=== PATIENT | female | born 1970 | race Caucasian/White ===

== ENCOUNTER → 2016-05-23 | Outpatient (CLI) | payer BC ==
--- NOTE | 2016-05-23 20:42 | MR ---
EXAMINATION TYPE: MR lumbar spine wo con DATE OF EXAM: 05/23/2016 5:11 PM COMPARISON: 05/15/2013 HISTORY: 45 year-old female post laminectomy syndrome, low back pain, leg weakness TECHNIQUE: Multiplanar, multisequence images of the lumbar spine were acquired. FINDINGS: Redemonstrated are postsurgical changes of L4-S1 posterior fusion with corresponding laminectomies. Old mild superior endplate compression deformity of L3 is unchanged. Vertebral body heights otherwise preserved and alignment is maintained. No suspicious bone marrow replacement. Conus medullaris is normal. No prevertebral or paravertebral soft tissue abnormality. At T12-L1, no spinal canal or neuroforaminal stenosis. At L1-L2, no spinal canal or neuroforaminal stenosis. At L2-L3, minimal diffuse disc bulge slightly increased from prior exam. However, this does not resul t in any significant spinal canal or neuroforaminal stenosis. At L3-L4, there is interval progression in degenerative disc desiccation, ligamentum flavum thickenin g, and facet arthropathy. Minimal bulging disc is also increased. However, changes does not result in any significant spinal canal stenosis. There is mild bilateral neural foraminal stenosis particularl y on the right that does not appear significantly changed. At L4-L5, no spinal canal stenosis. Relatively similar mild right neuroforaminal stenosis. At L5-S1, no spinal canal stenosis. Relatively similar moderate bilateral neuroforaminal stenoses. IMPRESSION: 1. Status post L4-S1 posterior fusion. 2. Degenerative disc disease has slightly progressed above the fusion at L3-L4. There is facet arthro nathanael at this level as well but relatively similar mild right greater than left neuroforaminal stenos is. 3. Mild right neuroforaminal stenosis at L4-L5 and moderate bilateral neuroforaminal stenoses at L5-S 1 are also relatively similar. 4. Remote mild superior endplate compression deformity of L3 is also unchanged. 5. No canal compromise.
== END | disposition home or self-care (01) ==
LOC: RADMRIMAIN 16:31
PROVIDERS: ATTEND Family Medicine
DX: M99.73 Connective tissue and disc stenosis of intervertebral foramina of lumbar region (principal); M51.36 Other intervertebral disc degeneration, lumbar region; M46.96 Unspecified inflammatory spondylopathy, lumbar region; Z98.1 Arthrodesis status
CPT/HCPCS: 72148

== ENCOUNTER → 2016-09-24 | Outpatient (CLI) | payer BC ==
--- NOTE | 2016-09-24 15:02 | BD ---
EXAMINATION TYPE: MG DEXA axial skeleton. DATE OF EXAM: 09/24/2016 COMPARISON: 2014 CLINICAL HISTORY: osteoporosis Height: 5'2 Weight: 120 FRAX RISK QUESTIONS: Alcohol (3 or more units per day): no Family History (Parent hip fracture): no Glucocorticoids (More than 3mos): no (Ex: prednisone, prednisolone, methylprednisolone, dexamethasone, and hydrocortisone). History of Fracture in Adulthood: yes Secondary Osteoporosis: 1. Type 1 Diabetes: no 2. Hyperthyroidism: no 3. Menopause before 45: yes 4. Malnutrition: no 5. Chronic liver disease: no Rheumatoid Arthritis: no Current Tobacco Use: yes RISK FACTORS HISTORY OF: Surgery to Spine/ When: 2009 Family History of Osteoporosis: Postmenopausal woman: MEDICATIONS: Osteoporosis Medications: Which medication: Boniva How Lon Additional Medications: calcium, pre vitamin , nerve damage , anxiety, pain meds, Additional History: osteoporosis EXAM MEASUREMENTS: Bone mineral density about the R hip (g/cm2): 0.716 Bone mineral density about the L hip (g/cm2): 0.720 T Score values are as follows: -----R Neck: -2.3 -----L Neck: -2.3 -----R Total: -2.4 -----L Total: -2.2 Bone mineral density has: Decreased -1.8% since study of: 09/02/2014 IMPRESSION: Osteopenia (T Score between -2.5 and -1 as noted by T score values: Domenico Hips There is slightly increased risk of fracture and the patient may be considered for treatment. Re-Screen 2-5 years. NOTE: T-SCORE=SD OF THE YOUNG ADULT MEAN.
== END | disposition home or self-care (01) ==
LOC: RADBDWWP 12:29
PROVIDERS: ATTEND Family Medicine
DX: M85.88 Other specified disorders of bone density and structure, other site (principal)
CPT/HCPCS: 77080

== ENCOUNTER → 2018-03-05 | Outpatient (CLI) | payer BC ==
--- NOTE | 2018-03-06 12:28 | XR ---
EXAMINATION TYPE: XR chest 2V DATE OF EXAM: 03/05/2018 COMPARISON: 08/29/2015 INDICATION: Pleurisy TECHNIQUE: Frontal and lateral views of the chest are obtained. FINDINGS: The heart size is normal. The pulmonary vasculature is normal. The lungs are clear. Mild scoliosis is present. No pneumothorax is evident. IMPRESSION: 1. No acute pulmonary process.
--- NOTE | 2018-03-06 12:29 | XR ---
EXAMINATION TYPE: XR ribs LT DATE OF EXAM: 03/05/2018 COMPARISON: Chest x-ray same date HISTORY: Pleurisy TECHNIQUE: Two-view left RIBS FINDINGS: There is some thickening of the posterior lateral rib may be an old fracture. No acute disp laced fractures are evident. IMPRESSION: 1. No acute rib fractures
== END | disposition home or self-care (01) ==
LOC: RADXRMAIN 17:24
PROVIDERS: ATTEND Family Medicine
DX: R09.1 Pleurisy (principal); M94.0 Chondrocostal junction syndrome [Tietze]
CPT/HCPCS: 71046

== ENCOUNTER → 2018-03-13 | Outpatient (CLI) | payer BC ==
--- NOTE | 2018-03-14 10:45 | ECHOS ---
STRESS ECHOCARDIOGRAM INDICATIONS: Chest pain. BASELINE HEART RATE: 69 BASELINE BLOOD PRESSURE: 92/76 MAXIMUM HEART RATE: 150 MAXIMUM BLOOD PRESSURE: 165/54 85% MPHR: 147 100% MPHR: 173 METS: 11.9 MAXIMUM STAGE REACHED: III TOTAL EXERCISE TIME: 11:00 CLINICAL INFORMATION: Baseline heart rate 69 beats per minute baseline blood pressure 92/76 mmHg. Baseline 12-lead ECG shows normal sinus rhythm with normal cardiac intervals. Patient exercised on a Blake protocol for 11 minutes achieving a peak heart rate of 150 beats per minute. Normal blood pressure response. Patient complained of chest pain through the procedure. There was no ECG evidence for ischemia. No arrhythmias were noted. Baseline 2D echo showed normal LV size systolic function without segmental wall motion abnormalities. At peak exercise, there was excellent augmentation of overall LV contractility without development of any wall motion abnormalities. At recovery, regional global LV systolic function remained normal. IMPRESSION: No ECG or echocardiographic evidence for ischemia. MMODL / IJN: [id number] /
== END | disposition home or self-care (01) ==
LOC: RADNMMAIN 09:50
PROVIDERS: ATTEND Family Medicine
DX: R07.89 Other chest pain (principal)
CPT/HCPCS: 93351

== ENCOUNTER → 2018-06-05 | Outpatient (CLI) | payer BC ==
--- NOTE | 2018-06-05 16:47 | XR ---
EXAMINATION TYPE: XR chest 2V DATE OF EXAM: 06/05/2018 COMPARISON: 03/05/2018 HISTORY: 47 year-old female chest pain and cough TECHNIQUE: Frontal and lateral views FINDINGS: The cardiomediastinal silhouette, aorta, and pulmonary vasculature are within normal limits. Mild pat skyla density at the left base peripherally. Otherwise, lungs and pleural spaces are clear. Mild hyperi nflation. Retrospective review of the patient's 03/05/2018 rib series shows findings suspicious for minimally di splaced fractures of the left anterolateral third, fourth, and fifth ribs. IMPRESSION: 1. Mild patchy peripheral left basilar atelectasis or developing infiltrate. 2. Mild hyperinflation may relate to depth of inspiration or underlying emphysema. 3. Note that retrospective review of the patient's 03/05/2018 rib series demonstrated minimally displa esperanza fractures of the left anterolateral third, fourth, and fifth ribs.
--- NOTE | 2018-06-06 10:00 | ECHOF ---
Referral Reason:R07.9 CHEST PAIN MEASUREMENTS -------- HEIGHT: 162.6 cm WEIGHT: 62.6 kg BP: 112/71 RVIDd: 2.6 cm (< 3.3) IVSd: 1.0 cm (0.6 - 1.1) LVIDd: 3.8 cm (3.9 - 5.3) LVPWd: 1.0 cm (0.6 - 1.1) IVSs: 1.5 cm LVIDs: 2.5 cm LVPWs: 1.5 cm LA Diam: 2.8 cm (2.7 - 3.8) LAESV Index (A-L): 22.63 ml/m Ao Diam: 2.8 cm (2.0 - 3.7) AV Cusp: 2.0 cm (1.5 - 2.6) EPSS: 0.5 cm MV E Alex: 0.96 m/s MV DecT: 234 ms MV A Alex: 0.72 m/s MV E/A Ratio: 1.32 RAP: 5.00 mmHg RVSP: 22.98 mmHg MV EF SLOPE: 171.17 mm/s (70 - 150) MV EXCURSION: 1.83 cm (> 18.000) FINDINGS -------- Sinus rhythm. This was a technically good study. The left ventricular size is normal. Left ventricular wall thickness is normal. Overall left vent ricular systolic function is normal with, an EF between 60 - 65 %. The right ventricle is normal in size. Normal LA size by volume 22+/-6 ml/m2. The right atrium is normal in size. The aortic valve is trileaflet and appears structurally normal. The mitral valve leaflets are mildly thickened. Mild tricuspid regurgitation present. Right ventricular systolic pressure is normal at < 35 mmHg. Trace/mild (physiologic) pulmonic regurgitation. The aortic root size is normal. Normal inferior vena cava with normal inspiratory collapse consistent with estimated right atrial pre ssure of 5 mmHg. There is no pericardial effusion. CONCLUSIONS -------- 1. Sinus rhythm. 2. This was a technically good study. 3. The left ventricular size is normal. 4. Left ventricular wall thickness is normal. 5. Overall left ventricular systolic function is normal with, an EF between 60 - 65 %. 6. The right ventricle is normal in size. 7. Normal LA size by volume 22+/-6 ml/m2. 8. The right atrium is normal in size. 9. The aortic valve is trileaflet and appears structurally normal. 10. The mitral valve leaflets are mildly thickened. 11. Mild tricuspid regurgitation present. 12. Right ventricular systolic pressure is normal at < 35 mmHg. 13. Trace/mild (physiologic) pulmonic regurgitation. 14. The aortic root size is normal. 15. Normal inferior vena cava with normal inspiratory collapse consistent with estimated right atrial pressure of 5 mmHg. 16. There is no pericardial effusion. GUNNER'S MATE: LAURITA Prater
== END | disposition home or self-care (01) ==
LOC: RADECHMAIN 13:02
PROVIDERS: ATTEND Family Medicine
DX: I07.1 Rheumatic tricuspid insufficiency (principal); I37.1 Nonrheumatic pulmonary valve insufficiency; R91.8 Other nonspecific abnormal finding of lung field
CPT/HCPCS: 71046; 93306

== ENCOUNTER 2018-07-29 07:49 | Day surgery (SDC) | payer BC ==
[2018-07-23 11:17] VITALS: BMI 23.6
[~2018-07-29 07:49] MED LIST: ALPRAZolam 0.25 MG TAB PO PRN; SODIUM CHLORIDE 0.9% 1,000 ML in EMPTY BAG 1 BAG IV ONE
[2018-07-29 08:19] VITALS: TEMP 97.5
[2018-07-29 09:09] LABS: Basophils # (A) 0.1 k/uL (0-0.2); Basophils % (A) 1 %; Eosinophils # (A) 0.2 k/uL (0-0.7); Eosinophils % (A) 3 %; HCT 45.1 % (34.0-46.0); HGB 14.5 gm/dL (11.4-16.0); Lymphocytes # (A) 1.6 k/uL (1.0-4.8); Lymphocytes % (A) 21 %; MCH 30.5 pg (25.0-35.0); MCHC 32.1 g/dL (31.0-37.0); Mean Platelet Volume 7.4; Monocytes # (A) 0.5 k/uL (0-1.0); Monocytes % (A) 6 %; Neutrophils # (A) 5.2 k/uL (1.3-7.7); Neutrophils % (A) 68 %; Platelet Count 261 k/uL (150-450); RBC 4.75 m/uL (3.80-5.40); RDW 13.7 % (11.5-15.5); WBC 7.7 k/uL (3.8-10.6)
[2018-07-29 09:19] LABS: African American GFR (CKD) >90 (>60 ml/min/1.73 sqM); Anion Gap 8 mmol/L; Blood Urea Nitrogen 21 mg/dL (7-17); Calcium 9.7 mg/dL (8.4-10.2); Carbon Dioxide 28 mmol/L (22-30); Chloride 107 mmol/L (98-107); Glucose 96 mg/dL (74-99); Potassium 4.4 mmol/L (3.5-5.1); Sodium 143 mmol/L (137-145)
[2018-07-29] MEDS ORDERED: fentaNYL (PF) 50 MCG/ML 2 ML AMP ONE (09:37)
[2018-07-29] MEDS ORDERED: VERAPAMIL 2.5 MG/ML 2 ML AMP ONE (09:37)
[2018-07-29] MEDS ORDERED: LIDOCAINE 1% INJ 10MG/ML (20 ML MDV) ONE (09:37)
[2018-07-29] MEDS ORDERED: fentaNYL (PF) 50 MCG/ML 2 ML AMP IV ONE (09:43)
[2018-07-29] MEDS ORDERED: LIDOCAINE 1% INJ 10MG/ML (20 ML MDV) SQ ONE (09:46)
[2018-07-29] MEDS: MIDAZOLAM (PF) 2 MG/2 ML VIAL IV ONE ×2 (09:48→09:52)
[2018-07-29] MEDS ORDERED: VERAPAMIL SYRINGE (5 MG/10 ML) INTRAARTER ONE (09:49)
[2018-07-29] MEDS ORDERED: HEPARIN SODIUM 1,000 UN/ML (10ML VL) ONE (09:49)
[2018-07-29] MEDS ORDERED: HEPARIN SODIUM 1,000 UN/ML (10ML VL) IV ONE (09:54)
[2018-07-29] MEDS ORDERED: IOPAMIDOL-370 125ML BTL INJ ONE (09:58)
[2018-07-29] MEDS ORDERED: RX INFO: IV CONTRAST WAS GIVEN 1 EACH MISC MISCELLANE PRN (10:11)
[2018-07-29] MEDS ORDERED: SODIUM CHLORIDE 0.9% 1,000 ML IV SCH (10:15)
[2018-07-29 12:17] VITALS: BP 97/67; PULSE 56; RESP 16
--- NOTE | 2018-07-29 12:40 | CC ---
CARDIAC CATHETERIZATION REPORT Mrs. Koehler is a 47-year-old female with known history of hyperlipidemia and chronic tobacco use who has been complaining of recurrent episode of chest discomfort with radiation and improving with nitroglycerin sublingually. Her stress echocardiogram revealed no evidence of inducible ischemia. Because of the persistent symptoms and the pattern, recommendation made regarding cardiac catheterization. The procedure as well as the risks and the complications were discussed with the patient who is in full understanding and agreement. PROCEDURE: Patient was brought to the slabbing machine operator in a fasting semi-sedated state after receiving fentanyl and Benadryl and achieving moderate conscious sedated state. Using Xylocaine anesthesia in the Seldinger technique a 6-Chadian sheath was introduced in the right radial artery. Selective right and left coronary angiography performed using 5-Chadian 3.5 bend right and left Pierre catheter. Multiple views of the coronary artery including hemiaxial views were obtained. Following that 5-Chadian tight pigtail catheter was introduced left ventricle and a 30-degree FREITAS view of the left ventricle was obtained. Following that, the catheter and sheaths were removed. Hemostasis was obtained with deployment of a TR band. There was no immediate complication. Patient is returned to her room in stable condition. FINDINGS: LEFT MAIN: This is a large-sized vessel bifurcating left circumflex, left anterior descending artery. Left main coronary artery has no evidence of high-grade stenosis. LEFT ANTERIOR DESCENDING ARTERY: This is a large-sized vessel reaching toward the apex with a wraparound apex segment. The left anterior descending artery gives rise to a moderate-sized diagonal branch proximally. The left anterior descending artery and its branches have no evidence of obstructive coronary artery disease. LEFT CIRCUMFLEX: This is a nondominant vessel, large in caliber giving rise to 4 obtuse marginal branches. The first one is the largest in caliber. The left circumflex as well as branches have no evidence of obstructive coronary artery disease. RIGHT CORONARY ARTERY: This is a dominant vessel, moderate in caliber. Bifurcating distally to PDA and posterolateral segment and branches. The right coronary artery as well as branches have no evidence of obstructive coronary artery disease. LEFT VENTRICULOGRAM: Left ventriculogram was performed in 30-degree FREITAS view and revealed normal left ventricular size and systolic function. Ejection fraction is 60%. HEMODYNAMICS: There was no gradient across the aortic valve. The left ventricular end-diastolic pressure is 12 to 14 mmHg. CONCLUSION: 1. Normal coronary arteries. 2. Normal left ventricular size and systolic function. RECOMMENDATION: In view of finding anatomy, I recommend continue medical therapy with aggressive coronary risk modifications that have been initiated. Those findings and recommendation were discussed with the patient and her family and they are in full understanding and agreement. Duration of procedure is 17 minutes. SAMUEL / CORONA: [id number] /
[2018-07-29] MEDS ORDERED: GABAPENTIN 300 MG CAP PO SCH (16:00)
[2018-07-29] MEDS ORDERED: ACET/COD 300 MG/30 MG STARTER PACK 6 TAB BTL PO SCH (21:00)
[2018-07-29] MEDS ORDERED: NON-FORMULARY DRUG (Simvastatin 10 MG) PO SCH (21:00)
[2018-07-29] MEDS ORDERED: buPROPion 75 MG TAB PO SCH (21:00)
[2018-07-30] MEDS ORDERED: NON-FORMULARY DRUG (Aspirin [Adult Low Dose Aspirin Ec] 81 MG) PO SCH (09:00)
== END 2018-07-29 14:55 | disposition home or self-care (01) ==
LOC: CATHCVL 07:49
PROVIDERS: ATTEND Internal Medicine Interventional Cardiology
DX: I20.0 Unstable angina (principal); E78.2 Mixed hyperlipidemia; F17.210 Nicotine dependence, cigarettes, uncomplicated; Z79.899 Other long term (current) drug therapy; Z79.82 Long term (current) use of aspirin; Z79.810 Long term (current) use of selective estrogen receptor modulators (SERMs); Z88.6 Allergy status to analgesic agent; Z88.5 Allergy status to narcotic agent
CPT/HCPCS: 93458; 80048; 85025; J2001; J3010; J1644; Q9967; J2250

== ENCOUNTER → 2019-01-21 | Outpatient (CLI) | payer BC ==
--- NOTE | 2019-01-22 13:57 | BD ---
EXAMINATION TYPE: Axial Bone Density DATE OF EXAM: 01/21/2019 COMPARISON: 09.24.16 CLINICAL HISTORY: 48 YR OLD FEMALE [id number] CODE: Height: 61.3 Weight: 127 FRAX RISK QUESTIONS: Secondary Osteoporosis: YES 3. Menopause before 45: YES 4 Current Tobacco Use: YES RISK FACTORS HISTORY OF: Surgery to Spine TO LUMBAR SPINE WITH RODS AND SCREWS ABOUT 10 YRS AGO Family History of Osteoporosis: YES, MOTHER AND BROTHER Diet low in dairy products/other sources of calcium: YES, ALLERGIC Postmenopausal woman: COMPLETE HYST AT 30 YRS OLD Hyperparathyroidism: NO Adrenal Insufficiency: NO MEDICATIONS: Prednisone or other steroids: YES, ON AND OFF FOR HER BACK, STEROIDAL Osteoporosis Medications: YES, LAST TAKEN 6 MOS AGO, BONIVA Additional Medications: NOTHING TO NOTE FOR THE LAST 6MOS Additional History: LUMBAR SURGERY, EXAM MEASUREMENTS: Bone mineral densitometry was performed using the [employer] System. SPINE NOT DONE, SURGERY WITH RODS AND SCREWS Bone mineral density about the R hip (g/cm2): 0.747 Bone mineral density about the L hip (g/cm2): 0.753 T Score values are as follows: -----R Neck: -2.0 -----L Neck: -2.1 -----R Total: -2.1 -----L Total: -2.0 Bone mineral density has: Increased 4.0% since study of: 09.24.2016 FRAX%s: THERE IS A 5.4% CHANCE FOR A MAJOR OSTEOPOROTIC FX AND A 1.5% FOR HIP.....PROBABILITY FOR F X IN 10 YRS TIME Bone mineral density about the L Wrist (g/cm2): 0.482 T Score values are as follows: -----Dist. R+U: -4.1 -----Prox. R+U: -1.2 -----Radius total: -3.1 Bone mineral density FIRST SCAN OF FOREARM IMPRESSION: Osteoporosis right wrist. Osteopenia bilateral femora. NOTE: T-SCORE=SD OF THE YOUNG ADULT MEAN.
== END | disposition home or self-care (01) ==
LOC: RADBDWWP 16:02
PROVIDERS: ATTEND Family Medicine
DX: M81.8 Other osteoporosis without current pathological fracture (principal); M85.851 Other specified disorders of bone density and structure, right thigh; M85.852 Other specified disorders of bone density and structure, left thigh; N95.1 Menopausal and female climacteric states
CPT/HCPCS: 77080

== ENCOUNTER → 2019-02-17 | Outpatient (CLI) | payer BC ==
--- NOTE | 2019-02-18 10:19 | MM ---
Reason for exam: screening (asymptomatic). Last mammogram was performed 3 years and 5 months ago. History: Patient is postmenopausal. Family history of breast cancer in aunt. Took hormonal contraceptives for 5 years beginning at age 20. Physical Findings: A clinical breast exam by your physician is recommended on an annual basis and results should be correlated with mammographic findings. MG 3D Screening Mammo W/Cad Bilateral CC and MLO view(s) were taken. Prior study comparison: September 13, 2015, bilateral MG screening mammo w CAD. September 02, 2014, bilateral MG screening mammo w CAD. No significant changes when compared with prior studies. ASSESSMENT: Benign, BI-RAD 2 RECOMMENDATION: Routine screening mammogram of both breasts in 1 year.
== END | disposition home or self-care (01) ==
LOC: RADMAMWWP 06:52
PROVIDERS: ATTEND Family Medicine
DX: Z12.31 Encounter for screening mammogram for malignant neoplasm of breast (principal)
CPT/HCPCS: 77063; 77067

== ENCOUNTER → 2020-01-06 | Outpatient (CLI) | payer BC ==
--- NOTE | 2020-01-07 13:56 | MR ---
EXAMINATION TYPE: MR lumbar spine wo con DATE OF EXAM: 01/06/2020 COMPARISON: Prior MRI lumbar spine May 23, 2016. HISTORY: LBP, BLE radiculopathy, hx surgery 10 yrs ago TECHNIQUE: Multiplanar, multisequence imaging of the lumbar spine is performed without IV contrast. FINDINGS: Sagittal images of the lumbar spine redemonstrate artifact from posterior fusion hardware L 4-S1 levels and disc material. Stable mild height loss along the superior L3 endplate. New Multilevel disc desiccation. Alignment stable and satisfactory. The conus medullaris remains normal in positio n and signal ending mid L1 level. The bone marrow signal intensity remains within normal limits abov e and below surgical levels. Axial images show T12-L1 and L1-L2 levels to remain within normal limits. Axial images at L2-L3 level redemonstrate mild broad disc bulge minimally effacing the anterior theca l sac. No significant change from prior. Axial images at L3-L4 level demonstrates mild facet arthropathy and ligamentum flavum hypertrophy wit h some effacement of the left posterolateral thecal sac. There is mild broad disc bulge minimally eff acing anterior thecal sac. Mild right greater than left bilateral anterior inferior neural foraminal narrowing. No significant change from prior. Axial images at L4-L5 levels artifact from disc material and surgical change. Successful posterior de compression redemonstrated. Neural foramina remain grossly patent. Axial images at L5-S1 level redemonstrates right successful posterior decompression. Artifact from yen rgical change. Suboptimal evaluation neural foramina particularly on the right due to artifact. Paraspinal muscle bulk is fairly well maintained. IMPRESSION: Postsurgical changes L4-S1 level redemonstrated. Successful posterior decompression. Alig nment stable and satisfactory. No significant change or interval progression from prior MRI.
== END | disposition home or self-care (01) ==
LOC: RADMRIMAIN 19:17
PROVIDERS: ATTEND Neurological Surgery
DX: Z98.890 Other specified postprocedural states (principal)
CPT/HCPCS: 72148

== ENCOUNTER → 2021-04-06 | Outpatient (CLI) | payer BC ==
--- NOTE | 2021-04-06 18:03 | BD ---
EXAMINATION TYPE: Axial Bone Density DATE OF EXAM: 04/06/2021 COMPARISON: 01/21/2019 CLINICAL HISTORY: Postmenopausal screening Height: 61 IN Weight: 124 LBS FRAX RISK QUESTIONS: Secondary Osteoporosis: 3. Menopause before 45: TOTAL HYST AGE 30 Current Tobacco Use: YES RISK FACTORS HISTORY OF: Surgery to Spine: 2005 AND 2009 Family History of Osteoporosis: YES 2 BROTHERS Active: YES Diet low in dairy products/other sources of calcium: YES Postmenopausal woman: TOTAL HYST AGE 30 Lost more than 2 inches in height since high school: YES 3" MEDICATIONS: Osteoporosis Medications: YES Which medication: Prolia How Lon DAYS Additional Medications: CALCIUM, VIT D, PROLIA INJ, TYLENOL, MOTRIN EXAM MEASUREMENTS: Bone mineral densitometry was performed using the [employer] System. Bone mineral density about the R hip (g/cm2): 0.727 Bone mineral density about the L hip (g/cm2): 0.703 T Score values are as follows: -----R Neck: -2.2 -----L Neck: -2.4 -----R Total: -2.3 -----L Total: -2.3 Bone mineral density has: Decreased -4.1% since study of: 01/21/2019 Bone mineral density about the L Wrist (g/cm2): 0.507 T Score values are as follows: -----Dist. R+U: -3.7 -----Prox. R+U: -1.4 -----Radius total: -2.8 Bone mineral density has: Decreased 1.9% since study of: 01/21/2019 IMPRESSION: Osteoporosis (T Score less than -2.5). There is increased fracture risk and therapy is usually indicated based on age. Re-Screen 1-2 years. NOTE: T-SCORE=SD OF THE YOUNG ADULT MEAN.
== END | disposition home or self-care (01) ==
LOC: RADBDWWP 16:11
PROVIDERS: ATTEND Family Medicine
DX: M81.0 Age-related osteoporosis without current pathological fracture (principal)
CPT/HCPCS: 77080

== ENCOUNTER → 2021-05-08 | Outpatient (CLI) | payer BC ==
--- NOTE | 2021-05-09 15:06 | MM ---
Reason for exam: screening (asymptomatic). Last mammogram was performed 2 years and 3 months ago. History: Patient is postmenopausal. Family history of breast cancer in aunt. Took hormonal contraceptives for 5 years beginning at age 20. Physical Findings: A clinical breast exam by your physician is recommended on an annual basis and results should be correlated with mammographic findings. MG Screening Mammo w CAD Bilateral CC and MLO view(s) were taken. Prior study comparison: February 17, 2019, bilateral MG 3d screening mammo w/cad. September 13, 2015, bilateral MG screening mammo w CAD. The breast tissue is heterogeneously dense. This may lower the sensitivity of mammography. No significant changes when compared with prior studies. ASSESSMENT: Benign, BI-RAD 2 RECOMMENDATION: Routine screening mammogram of both breasts in 1 year.
== END | disposition home or self-care (01) ==
LOC: RADMAMWWP 16:54
PROVIDERS: ATTEND Family Medicine
DX: Z12.31 Encounter for screening mammogram for malignant neoplasm of breast (principal); Z78.0 Asymptomatic menopausal state; Z80.3 Family history of malignant neoplasm of breast
CPT/HCPCS: 77067

== ENCOUNTER → 2022-07-17 | Outpatient (CLI) | payer BC ==
--- NOTE | 2022-07-17 15:49 | MR ---
EXAMINATION TYPE: MR lumbar spine wo con DATE OF EXAM: 07/17/2022 COMPARISON: MRI lumbar spine January 06, 2020 HISTORY: Low back pain that radiates down both legs. History of surgery TECHNIQUE: Multiplanar, multisequence imaging of the lumbar spine is performed without IV contrast. FINDINGS: Sagittal images of the lumbar spine redemonstrate artifact from posterior fusion hardware L 4-S1 levels and disc material. Stable mild height loss along the superior L3 endplate. Persistent Mul tilevel disc desiccation. Alignment stable and satisfactory. The conus medullaris remains normal in position and signal ending mid L1 level. The bone marrow signal intensity remains within normal limi ts above and below surgical levels. Axial images show T12-L1 and L1-L2 levels to remain within normal limits. Axial images at L2-L3 level redemonstrate mild broad based posterior disc protrusion minimally effaci ng the anterior thecal sac. No significant change from prior. Axial images at L3-L4 level redemonstrates mild facet arthropathy and ligamentum flavum hypertrophy w ith some effacement of the left posterolateral thecal sac. There is mild broad disc bulge minimally e ffacing anterior thecal sac. Mild bilateral anterior inferior neural foraminal narrowing. No signific ant change from prior. Axial images at L4-L5 levels artifact from disc material and surgical change. Successful posterior de compression redemonstrated. Neural foramina remain grossly patent. Axial images at L5-S1 level redemonstrates prior successful posterior decompression. Artifact from yen rgical change. Suboptimal evaluation neural foramina particularly on the right due to artifact. Left- sided neural foramen is patent. Paraspinal muscle bulk is fairly well maintained. IMPRESSION: Postsurgical changes L4-S1 level redemonstrated. Successful posterior decompression redem onstrated. Alignment stable and satisfactory. No significant change or interval progression from prio r MRI.
== END | disposition home or self-care (01) ==
LOC: RADMRIMAIN 14:51
PROVIDERS: ATTEND Internal Medicine Geriatric Medicine
DX: M51.16 Intervertebral disc disorders with radiculopathy, lumbar region (principal)
CPT/HCPCS: 72148

== ENCOUNTER → 2022-07-24 | Outpatient (CLI) | payer BC ==
--- NOTE | 2022-07-25 18:30 | BD ---
EXAMINATION TYPE: Axial Bone Density DATE OF EXAM: 07/24/2022 CLINICAL HISTORY: 51 years old Female. ICD-10 CODE: M81.0 AGE-RELATED OSTEOPOROSIS W/O CURRENT PATHO LOGICAL FRAC Height: 61 Weight: 121 FRAX RISK QUESTIONS: Family History (Parent hip fracture): no History of Fracture in Adulthood: yes , ribs 2019 Secondary Osteoporosis: yes 3. Menopause before 45: 30 total hyst Current Tobacco Use: yes RISK FACTORS HISTORY OF: Surgery to Spine: yes, with rods and screws When: Family History of Osteoporosis: yes, father and brother Active: yes Diet low in dairy products/other sources of calcium: yes Postmenopausal woman: yes, age 30 Lost more than 2 inches in height since high school: yes, was 64 Frequent falls: no Poor Health: no MEDICATIONS: Osteoporosis Medications: yes Which medication: Prolia How Lon Additional Medications: yes gabapentin, calcium, vit d pain meds, muscle relaxer, copd meds EXAM MEASUREMENTS: Bone mineral densitometry was performed using the [employer] System. Bone mineral density about the R hip (g/cm2): 0.738 Bone mineral density about the L hip (g/cm2): 0.737 T Score values are as follows: -----R Neck: -2.2 -----L Neck: -2.3 -----R Total: -2.1 -----L Total: -2.1 Z Score values are as follows: -----R Neck: -1.1 -----L Neck: -1.3 -----R Total: -1.4 -----L Total: -1.4 Bone mineral density has: Increased 2.5% since study of: 04/06/2021 Bone mineral density about the L Wrist (g/cm2): 0.471 T Score values are as follows: -----Dist. R+U: -4.7 -----Prox. R+U: -1.7 -----Radius total: -3.4 Z Score values are as follows: -----Dist. R+U: -4.6 -----Prox. R+U: -1.5 -----Radius total: -3.2 Bone mineral density has: Decreased -3.7% since study of: 04/06/2021 FRAX%s: The graph provided illustrates a 7.3% chance for a major osteoporotic fx and a 2.2% chance fo r the hips probability for fx in 10 years time. IMPRESSION: Osteoporosis (T Score less than -2.5). There is increased fracture risk and therapy is usually indicated based on age. Re-Screen 1-2 years. NOTE: T-SCORE=SD OF THE YOUNG ADULT MEAN.
--- NOTE | 2022-07-25 18:57 | MM ---
Reason for Exam: Screening (asymptomatic). Last mammogram was performed 1 year(s) and 3 month(s) ago. Patient History: Menarche at age 13. First Full-Term at age 21. Left ovary removed at age 32. Right ovary removed at age 32. Hysterectomy at age 32. Postmenopausal. Hormonal Contraceptives, starting at age 20 for 5 years. Maternal aunt had breast cancer. Risk Values: Claire 5 year model risk: 0.9%. NCI Lifetime model risk: 7.9%. Prior Study Comparison: 09/13/2015 Bilateral Screening Mammogram, [facility]. 02/17/2019 Bilateral Screening Mammogram, [facility]. 05/08/2021 Bilateral Screening Mammogram, [facility]. Tissue Density: The breast tissue is heterogeneously dense. This may lower the sensitivity of mammography. Findings: Analyzed By CAD. Pattern appears stable. No significant interval change is evident. No suspicious groups of microcalcifications, spiculated or lobular masses, architectural distortion or other secondary signs of malignancy are mammographically apparent. Overall Assessment: Benign, BI-RAD 2 Management: Screening Mammogram of both breasts in 1 year. A negative mammogram report should not preclude additional follow up of suspicious palpable abnormalities. Patient should continue monthly self breast exam. A clinical breast exam by your physician is recommended on an annual basis and results should be correlated with mammographic findings. Electronically signed and approved by: Sylvester Porter D.O. Radiologis
== END | disposition home or self-care (01) ==
LOC: RADMAMWWP 15:54
PROVIDERS: ATTEND Family Medicine
DX: Z12.31 Encounter for screening mammogram for malignant neoplasm of breast (principal); M81.0 Age-related osteoporosis without current pathological fracture; M85.89 Other specified disorders of bone density and structure, multiple sites; Z78.0 Asymptomatic menopausal state; Z80.3 Family history of malignant neoplasm of breast
CPT/HCPCS: 77067; 77080

== ENCOUNTER → 2023-12-17 | Outpatient (CLI) | payer BC ==
--- NOTE | 2023-12-17 07:58 | MM ---
Reason for Exam: Screening (asymptomatic). Last mammogram was performed 1 year(s) and 5 month(s) ago. Patient History: Menarche at age 13. First Full-Term at age 21. Left ovary removed at age 32. Right ovary removed at age 32. Hysterectomy at age 32. Postmenopausal. Hormonal Contraceptives, starting at age 20 for 5 years. Maternal aunt had breast cancer. Risk Values: Claire 5 year model risk: 1.0%. NCI Lifetime model risk: 7.7%. Prior Study Comparison: 02/17/2019 Bilateral Screening Mammogram, [facility]. 05/08/2021 Bilateral Screening Mammogram, [facility]. 07/24/2022 Bilateral MG screening mammo w CAD, [facility]. Tissue Density: The breasts are heterogeneously dense, which may obscure small masses. Findings: Analyzed By CAD. There is no suspicious group of microcalcifications or new suspicious mass in either breast. Overall Assessment: Benign, BI-RAD 2 Management: Screening Mammogram of both breasts in 1 year. . Patient should continue monthly self-breast exams. A clinical breast exam by your physician is recommended on an annual basis. This exam should not preclude additional follow-up of suspicious palpable abnormalities. Note on Claire scores and lifetime risk: 1. A Claire score greater than 3% is considered moderate risk. If this is the case, consider specialist referral to assess eligibility for a risk reducing agent. 2. If overall lifetime risk for the development of breast cancer is 20% or higher, the patient may qualify for future screening with alternating mammogram and breast MRI. [facility], , 12/17/2023 7:55 AM. Electronically signed and approved by: Timoteo Lopez M.D. Radiologis
== END | disposition home or self-care (01) ==
LOC: RADMAMWWP 07:11
PROVIDERS: ATTEND Internal Medicine Geriatric Medicine
DX: Z12.31 Encounter for screening mammogram for malignant neoplasm of breast (principal); Z78.0 Asymptomatic menopausal state; Z80.3 Family history of malignant neoplasm of breast; Z90.722 Acquired absence of ovaries, bilateral; R92.333 Mammographic heterogeneous density, bilateral breasts
CPT/HCPCS: 77063; 77067